=== PATIENT | male | born 1965 | race African-American/Black ===

== ENCOUNTER 2017-11-22 13:00 | Inpatient (IN) | payer OTHER ==
[2017-11-22] MEDS ORDERED: guaiFENesin/D-METHORPHAN HB 10 ML UNIT-DOSE CUPS PO PRN (19:05)
[2017-11-22] MEDS ORDERED: MAGNESIUM CITRATE 300 ML BOTTLE PO PRN (19:05)
[2017-11-22] MEDS ORDERED: LOPERAMIDE HCL 2 MG CAPSULE PO PRN (19:05)
[2017-11-22] MEDS ORDERED: P-EPHED 60MG/TRIPROLIDI 2.5MG TABLET PO PRN (19:05)
[2017-11-22] MEDS ORDERED: MENTHOL/PHENOL 1 EACH UD MM PRN (19:05)
[2017-11-22] MEDS ORDERED: ACETAMINOPHEN 325 MG TABLET (FP) PO PRN (19:05)
[2017-11-22] MEDS ORDERED: MAGNESIUM HYDROX 2400MG/30ML ORAL SUSPENSION 30 ML CUP PO PRN (19:05)
[2017-11-22] MEDS ORDERED: IBUPROFEN 400 MG TABLET (FP) PO PRN (19:05)
[2017-11-22] MEDS ORDERED: hydrOXYzine PAMOATE 50 MG CAPSULE (FP) PO PRN (19:05)
[2017-11-22] MEDS ORDERED: MAG HYDROX/AL HYDROX/SIMETH 30 ML UNIT-DOSE CUP PO PRN (19:05)
--- NOTE | 2017-11-22 19:05 | HP ---
[facility] Rehab Assess/Revision - Admission History Admitted to Rehab from: [facility] Date of Admission to Rehab: 11/22/17 - Findings Detox History & Physical reviewed: Yes Concur with findings: Yes Inpatient Rehab Admission - Initial Determination Are CD services needed?: Yes Free of communicable disease: Yes Not in need of hospitalization: Yes - Rehab Admission Criteria Previous failed treatment: Yes Poor recovery environment: Yes Comorbidities: Yes Lacks judgement: Yes Patient is meeting Inpatient Rehab admission criteria:: Yes
[2017-11-22] MEDS: THIAMINE HCL 100 MG TABLET (FP) PO SCH (21:34)
[2017-11-22] MEDS: MELATONIN 5 MG TABLETS PO PRN (21:34)
[2017-11-23] MEDS: PRENATAL VITAMINS W/ FOLIC ACID TABLET (FP) PO SCH (10:03)
--- NOTE | 2017-11-23 11:17 | HP ---
Psychiatrist Admission - Data Date of interview: 11/23/17 Admission source: [address] [place] [address] detox Identifying data: This is the third admission tot [address] [place] [address] rehabilitation for this 52 yo single AA father of ,domiciled,employed (seasonal job). Medical History: H/O PPD positive,H/O syncope. Psychiatric History: denies Physical/Sexual Abuse/Trauma History: denies Vital Signs: Vital Signs - 24 hr 11/23/17 11/23/17 11/23/17 01:04 03:30 06:48 Temperature 97.6 F Pulse Rate 54 L Respiratory 18 19 16 Rate Blood Pressure 113/87 Allergies/Adverse Reactions: Allergies Allergy/AdvReac Type Severity Reaction Status Date / Time No Known Drug Allergies Allergy Verified 11/18/17 21:26 Pork/Porcine Containing Allergy Verified 11/18/17 21:26 Products Date of last physical exam: 11/18/17 Concur with the findings of this exam: Yes - Substance Abuse/Tx History Hx Alcohol Use: Yes (drinkning since 5 yo,beer a few packs daily) Hx Substance Use: Yes (marijuana since 10 yo,cocaine/crack since 20 yo) Substance Use Type: Alcohol, Cocaine, Marijuana Hx Substance Use Treatment: Yes (completed this program in Mar 2012) Mental Status Exam - Mental Status Exam Alert and Oriented to: Time, Place, Person Cognitive Function: Grossly Intact Patient Appearance: Well Groomed Mood: Euthymic Affect: Mood Congruent Patient Behavior: Cooperative Speech Pattern: Clear Voice Loudness: Normal Thought Process: Goal Oriented Thought Disorder: Not Present Hallucinations: Denies Suicidal Ideation: Denies Homicidal Ideation: Denies Insight/Judgement: Fair Sleep: Fair Appetite: Good Muscle strength/Tone: Normal Gait/Station: Normal Psychiatric Findings - Problem List ([place] 1, 2,3) (1) Cannabis dependence Current Visit: Yes Status: Chronic (2) Cocaine dependence Current Visit: Yes Status: Chronic (3) History of positive PPD, treatment status unknown Current Visit: Yes Status: Chronic (4) Alcohol dependence Current Visit: Yes Status: Chronic - Initial Treatment Plan Initial Treatment Plan: wiil monitor program.
[2017-11-23] MEDS: THIAMINE HCL 100 MG TABLET (FP) PO SCH (21:21)
[2017-11-23] MEDS: MELATONIN 5 MG TABLETS PO PRN (21:22)
[2017-11-24] MEDS: PRENATAL VITAMINS W/ FOLIC ACID TABLET (FP) PO SCH (10:07)
[2017-11-24] MEDS: THIAMINE HCL 100 MG TABLET (FP) PO SCH (21:33)
[2017-11-24] MEDS: MELATONIN 5 MG TABLETS PO PRN (21:34)
[2017-11-25] MEDS: PRENATAL VITAMINS W/ FOLIC ACID TABLET (FP) PO SCH (09:59)
[2017-11-25] MEDS: THIAMINE HCL 100 MG TABLET (FP) PO SCH (21:35)
[2017-11-25] MEDS: MELATONIN 5 MG TABLETS PO PRN (21:35)
[2017-11-26] MEDS: PRENATAL VITAMINS W/ FOLIC ACID TABLET (FP) PO SCH (10:04)
[2017-11-26] MEDS: THIAMINE HCL 100 MG TABLET (FP) PO SCH (21:34)
[2017-11-26] MEDS: MELATONIN 5 MG TABLETS PO PRN (21:35)
[2017-11-27] MEDS: PRENATAL VITAMINS W/ FOLIC ACID TABLET (FP) PO SCH (10:32)
[2017-11-27] MEDS: MELATONIN 5 MG TABLETS PO PRN (21:32)
[2017-11-27] MEDS: THIAMINE HCL 100 MG TABLET (FP) PO SCH (21:32)
[2017-11-28] MEDS: PRENATAL VITAMINS W/ FOLIC ACID TABLET (FP) PO SCH (10:00)
[2017-11-28] MEDS: THIAMINE HCL 100 MG TABLET (FP) PO SCH (21:29)
[2017-11-28] MEDS: MELATONIN 5 MG TABLETS PO PRN (21:29)
[2017-11-29 06:42] VITALS: BP 117/62; PULSE 51; TEMP 97.3
[2017-11-29] MEDS: PRENATAL VITAMINS W/ FOLIC ACID TABLET (FP) PO SCH (09:56)
--- NOTE | 2017-11-29 10:40 | PN ---
[facility] Progress Note Note: Psychiatric nurse practitioner: Pt. leaving AMA. Pt. encouraged by staff to stay but continues to refuse. States he has to return to work.
--- NOTE | 2017-11-29 10:42 | PN ---
[facility] Progress Note Note: Patient signing out.
== END 2017-11-29 11:00 | disposition left against medical advice (07) | DRG 770 ==
LOC: YASAS 13:00 → Y5N 13:01
PROVIDERS: ADMIT Psychiatry & Neurology Psychiatry; ATTEND Psychiatry & Neurology Psychiatry
PROC: HZ42ZZZ Group Counseling for Substance Abuse Treatment, Cognitive-Behavioral (ICD-10-PCS; principal; 2017-11-22)
DX: F10.20 Alcohol dependence, uncomplicated (principal); F14.20 Cocaine dependence, uncomplicated; F12.20 Cannabis dependence, uncomplicated; R76.11 Nonspecific reaction to tuberculin skin test without active tuberculosis

== ENCOUNTER 2018-08-26 08:22 | Inpatient (IN) | payer SELFPAY ==
[2018-08-26 08:41] VITALS: BMI 24.2
--- NOTE | 2018-08-26 09:52 | HP ---
CIWA Score Nausea/Vomitin Muscle Tremors: 2 Anxiety: 2 Agitation: 2 Paroxysmal Sweats: 1-Minimal Palms Moist Orientation: 0-Oriented Tacttile Disturbances: 1-Very Mild Itch/Numbness Auditory Disturbances: 1-Very Mild Visual Disturbances: 0-None Headache: 2-Mild CIWA-Ar Total Score: 13 - Admission Criteria OASAS Guidelines: Admission for Medically Managed Detox: Requires at least one of the followin. CIWA greater than 12 2. Seizures within the past 24 hours 3. Delirium tremens within the past 24 hours 4. Hallucinations within the past 24 hours 5. Acute intervention needed for co occurring medical disorder 6. Acute intervention needed for co occurring psychiatric disorder 7. Severe withdrawal that cannot be handled at a lower level of care (continued vomiting, continued diarrhea, abnormal vital signs) requiring intravenous medication and/or fluids 8. Admission ROS S - HPI Chief Complaint: I need help to stop drinking alcohol,cocaine,marijuana Allergies/Adverse Reactions: Allergies Allergy/AdvReac Type Severity Reaction Status Date / Time No Known Drug Allergies Allergy Verified 08/26/18 08:54 Pork/Porcine Containing Allergy Verified 08/26/18 08:54 Products History of Present Illness: this 53 years old with alcohol,cocaine dependence seeking detox,withdrawal symptom, multiple admissions for detox,last detox [facility] 11/18/17 to 11/22/17 detox,to rehab 11/22/17 to 11/24/17 keep relapsing history of arthritis of right elbow,right hip,right knee,low back pain longest period of sobriety 2 years history of bradycardia,work out and exercise plan to go to rehab after detox - Ebola screening Have you traveled outside of the country in the last 21 days: No Have you had contact with anyone from an Ebola affected area: No - Review of Systems Constitutional: No Symptoms Reported, Unintentional Wgt. Loss, Unexplained wgt Loss EENT: reports: Nose Congestion Respiratory: reports: No Symptoms reported Cardiac: reports: Other (bradycardia) GI: reports: Nausea, Poor Appetite, Indigestion, Abdominal cramping : reports: No Symptoms Reported Musculoskeletal: reports: Back Pain, Joint Pain, Muscle Pain Integumentary: reports: Dryness Neuro: reports: Headache, Tremors Endocrine: reports: No Symptoms Reported Hematology: reports: No Symptoms Reported Psychiatric: reports: No Sypmtoms Reported, Judgement Intact, Mood/Affect Appropiate, Orientated x3 Other Systems: Reviewed and Negative Patient History - Patient Medical History Hx Anemia: Yes Hx Asthma: No Hx Chronic Obstructive Pulmonary Disease (COPD): No Hx Cancer: No Hx Cardiac Disorders: No Hx Congestive Heart Failure: No Hx Hypertension: No Hx Hypercholesterolemia: No Hx Pacemaker: No HX Cerebrovascular Accident: No Hx Seizures: No Hx Dementia: No Hx Diabetes: No Hx Gastrointestinal Disorders: No Hx Liver Disease: No Hx Genitourinary Disorders: No Hx Sexually Transmitted Disorders: No Hx Renal Disease (ESRD): No Hx Thyroid Disease: No Hx Human Immunodeficiency Virus (HIV): No (Negative. Last tested 2 yrs ago 2016) Hx Hepatitis C: No Hx Depression: Yes Hx Suicide Attempt: No Hx Bipolar Disorder: No Hx Schizophrenia: No Other Medical History: no suicidal,no homicidal,arthritis - Patient Surgical History Past Surgical History: Yes Hx Neurologic Surgery: No Hx Cataract Extraction: No Hx Cardiac Surgery: No Hx Lung Surgery: No Hx Breast Surgery: No Hx Breast Biopsy: No Hx Abdominal Surgery: No Hx Appendectomy: Yes (20 YEARS AGO) Hx Cholecystectomy: No Hx Genitourinary Surgery: No Hx Section: No Hx Orthopedic Surgery: No Anesthesia Reaction: No - PPD History Previous Implant?: Yes Documented Results: Positive w/proof Implanted On Prior R Admission?: No PPD to be Administered?: No - Smoking Cessation Smoking history: Former smoker Have you smoked in the past 12 months: No Hx Chewing Tobacco Use: No Initiated information on smoking cessation: Yes 'Breaking Loose' booklet given: 08/27/18 - Substance & Tx. History Hx Alcohol Use: Yes Hx Substance Use: Yes Substance Use Type: Alcohol, Cocaine Hx Substance Use Treatment: Yes ([facility] 11/18/17 to 11/22/17,rehab 11/22/17 to 04/12) - Substances abused Alcohol Substance route: Oral Frequency: Daily Amount used: fifth of wine; 6 cans of beers 0f 40 ozs Age of first use: 5 Date of last use: 08/25/18 Crack Substance route: Smoking Frequency: Daily Amount used: $50 Age of first use: 22 Date of last use: 08/25/18 Marijuana/Hashish Frequency: 3-6 times per week Amount used: 20$ Age of first use: 33 Date of last use: 08/24/18 Family Disease History - Family Disease History Family Disease History: Heart Disease: Father (. stroke, HTN.), Mother ( . HTN, Lung CA), CA: Mother, Other: Father Admission Physical Exam [facility] - Vital Signs Vital Signs: Vital Signs - 24 hr 08/26/18 08/26/18 08:38 08:55 Temperature 97.6 F 97.6 F Pulse Rate 44 L 44 L Respiratory 18 18 Rate Blood Pressure 135/72 135/72 - Physical General Appearance: Yes: Moderate Distress, Tremorous, Irritable, Sweating, Anxious HEENTM: Yes: Normal ENT Inspection, Pharynx Normal Respiratory: Yes: Lungs Clear, Normal Breath Sounds, No Respiratory Distress Neck: Yes: Within Normal Limits, Supple, Trachea in good position Breast: Yes: Within Normal Limits Cardiology: Yes: Bradycardia Abdominal: Yes: Within Normal Limits, Normal Bowel Sounds, Non Tender, Soft, Surgical Scar Genitourinary: Yes: Within Normal Limits Back: Yes: Muscle Spasm Musculoskeletal: Yes: full range of Motion, Back pain, Muscle Pain Extremities: Yes: Within Normal Limits, Normal Range of Motion, Tremors Neurological: Yes: electrical assembler II-XII NML intact, Fully Oriented, Alert, Motor Strength 5/5 Integumentary: Yes: Dry Lymphatic: Yes: Within Normal Limits - Diagnostic (1) syncope alcohol related Current Visit: No Status: Active (2) Alcohol dependence with uncomplicated withdrawal Current Visit: No Status: Acute (3) Cannabis dependence Current Visit: No Status: Chronic (4) Cocaine dependence Current Visit: No Status: Chronic (5) History of positive PPD, treatment status unknown Current Visit: No Status: Chronic (6) Bradycardia Current Visit: Yes Status: Acute (7) Arthritis Current Visit: Yes Status: Acute Cleared for Admission [facility] - Detox or Rehab [facility] Level of Care: Medically Managed Detox Regimen/Protocol: Librium Breathalyzer - Breathalyzer Breathalyzer: 0 Urine Drug Screen - Test Device Lot number: [id number] Expiration date: 05/23/20 - Control Is test valid?: Yes - Results Drug screen NEGATIVE: No Urine drug screen results: THC-Marijuana, MARLEE-Cocaine, MET-Methamphetamine Inpatient Rehab Admission - Rehab Decision to Admit Inpatient rehab admission?: No
[2018-08-26] MEDS ORDERED: MAGNESIUM CITRATE 300 ML BOTTLE PO PRN (10:01)
[2018-08-26] MEDS ORDERED: IBUPROFEN 400 MG TABLET (FP) PO PRN (10:01)
[2018-08-26] MEDS ORDERED: chlordiazePOXIDE HCL 25 MG CAPSULE PO PRN (10:01)
[2018-08-26] MEDS ORDERED: MAG HYDROX/AL HYDROX/SIMETH 30 ML UNIT-DOSE CUP PO PRN (10:01)
[2018-08-26] MEDS ORDERED: ACETAMINOPHEN 325 MG TABLET (FP) PO PRN ×2 (10:01)
[2018-08-26] MEDS ORDERED: hydrOXYzine PAMOATE 25 MG CAPSULE (FP) PO PRN (10:01)
[2018-08-26] MEDS ORDERED: BISMUTH SUBSALICYLATE 524 MG/30 ML UD PO PRN (10:01)
[2018-08-26] MEDS ORDERED: MENTHOL/PHENOL 1 EACH UD MM PRN (10:01)
[2018-08-26] MEDS ORDERED: METHOCARBAMOL 500 MG TABLET PO PRN (10:01)
[2018-08-26] MEDS ORDERED: MELATONIN 5 MG TABLETS PO PRN (10:01)
[2018-08-26] MEDS ORDERED: MAGNESIUM HYDROX 2400MG/30ML ORAL SUSPENSION 30 ML CUP PO PRN (10:01)
[2018-08-26] MEDS: chlordiazePOXIDE HCL 25 MG CAPSULE PO SCH ×3 (10:50→22:23)
[2018-08-26 12:13] LABS: ALBUMIN 3.6 g/dl (3.4-5.0); BILIRUBIN,TOTAL 0.4 mg/dL (0.2-1); CALCIUM 9.2 mg/dL (8.5-10.1); CREATININE 1.1 mg/dL (0.55-1.3); HEMATOCRIT 41.5 % (35.4-49); HEMOGLOBIN 13.5 GM/dL (11.7-16.9); MCH 32.8 pg (25.7-33.7); MCHC 32.7 g/dl (32.0-35.9); MEAN CELL VOLUME 100.5 fl (80-96); MEAN PLT VOLUME 11.1 fl (7.5-11.1); PLATELET COUNT 164 K/MM3 (134-434); POTASSIUM 4.1 mmol/L (3.5-5.1); RBC 4.13 M/mm3 (4.00-5.60); RDW 13.4 % (11.9-15.9); TOT PROT 7.3 g/dl (6.4-8.2); WHITE BLOOD COUNT 4.7 K/mm3 (4.0-10.0)
[2018-08-26] MEDS ORDERED: THIAMINE HCL 100 MG TABLET (FP) PO SCH (22:00)
[2018-08-27] MEDS: chlordiazePOXIDE HCL 25 MG CAPSULE PO SCH (06:50)
--- NOTE | 2018-08-27 09:16 | PN ---
[facility] CIWA - CIWA Score Nausea/Vomitin Muscle Tremors: 2 Anxiety: 2 Agitation: 3 Paroxysmal Sweats: 1-Minimal Palms Moist Orientation: 0-Oriented Tacttile Disturbances: 1-Very Mild Itch/Numbness Auditory Disturbances: 1-Very Mild Visual Disturbances: 0-None Headache: 2-Mild CIWA-Ar Total Score: 14 [facility] Progress Note (SOAP) Subjective: alert,irritable,anxious,interrupted sleep,pain in the body Objective: 08/27/18 09:15 Vital Signs Temperature 97.5 F L 08/27/18 07:07 Pulse Rate 46 L 08/27/18 07:07 Respiratory Rate 18 08/27/18 07:07 Blood Pressure 131/78 08/27/18 07:07 O2 Sat by Pulse Oximetry (%) Assessment: 08/27/18 09:16 withdrawal symptom Plan: continue detox
--- NOTE | 2018-08-27 09:21 | PN ---
[facility] Progress Note Note: patient did not want to complete treatment due to family emergency,signed release ama,high risk of relapsing explained, patient understood,left AMA.advise TO CALL 911 OR TO nearest emergency room if any problem
--- NOTE | 2018-08-27 09:25 | DS ---
[facility] Detox Discharge Summary Admission Date: 08/26/18 Discharge Date: 08/27/18 - History Present History: Alcohol Dependence, Cannabis Dependence, Cocaine Dependence Additional Comments: patient signed release AMA Pertinent Past History: bradycardia arthritis syncope - Physical Exam Results Vital Signs: Vital Signs Temperature 97.5 F L 08/27/18 07:07 Pulse Rate 46 L 08/27/18 07:07 Respiratory Rate 18 08/27/18 07:07 Blood Pressure 131/78 08/27/18 07:07 O2 Sat by Pulse Oximetry (%) Pertinent Admission Physical Exam Findings: withdrawal signs and symptom Vital Signs Temperature 97.5 F L 08/27/18 07:07 Pulse Rate 46 L 08/27/18 07:07 Respiratory Rate 18 08/27/18 07:07 Blood Pressure 131/78 08/27/18 07:07 O2 Sat by Pulse Oximetry (%) Laboratory Last Values WBC 4.7 K/mm3 (4.0-10.0) 08/26/18 09:50 RBC 4.13 M/mm3 (4.00-5.60) 08/26/18 09:50 Hgb 13.5 GM/dL (11.7-16.9) 08/26/18 09:50 Hct 41.5 % (35.4-49) 08/26/18 09:50 MCV 100.5 fl (80-96) H 08/26/18 09:50 MCH 32.8 pg (25.7-33.7) 08/26/18 09:50 MCHC 32.7 g/dl (32.0-35.9) 08/26/18 09:50 RDW 13.4 % (11.9-15.9) 08/26/18 09:50 Plt Count 164 K/MM3 (134-434) 08/26/18 09:50 MPV 11.1 fl (7.5-11.1) 08/26/18 09:50 Sodium 141 mmol/L (136-145) 08/26/18 09:50 Potassium 4.1 mmol/L (3.5-5.1) 08/26/18 09:50 Chloride 105 mmol/L (98-107) 08/26/18 09:50 Carbon Dioxide 30 mmol/L (21-32) 08/26/18 09:50 Anion Gap 6 MMOL/L (8-16) L 08/26/18 09:50 BUN 16 mg/dL (7-18) 08/26/18 09:50 Creatinine 1.1 mg/dL (0.55-1.3) 08/26/18 09:50 Est GFR (CKD-EPI)AfAm 87.13 08/26/18 09:50 Est GFR (CKD-EPI)NonAf 75.17 08/26/18 09:50 Random Glucose 95 mg/dL (74-106) 08/26/18 09:50 Calcium 9.2 mg/dL (8.5-10.1) 08/26/18 09:50 Total Bilirubin 0.4 mg/dL (0.2-1) 08/26/18 09:50 AST 37 U/L (15-37) 08/26/18 09:50 ALT 41 U/L (13-61) 08/26/18 09:50 Alkaline Phosphatase 77 U/L (45-117) 08/26/18 09:50 Total Protein 7.3 g/dl (6.4-8.2) 08/26/18 09:50 Albumin 3.6 g/dl (3.4-5.0) 08/26/18 09:50 RPR Titer Nonreactive (NONREACTIVE) 08/26/18 09:50 - Medication Discharge Medications: Ambulatory Orders NK [No Known Home Medication] 11/18/17 - Diagnosis (1) syncope alcohol related Current Visit: No Status: Active (2) Alcohol dependence with uncomplicated withdrawal Current Visit: No Status: Acute (3) Cannabis dependence Current Visit: No Status: Chronic (4) Cocaine dependence Current Visit: No Status: Chronic (5) History of positive PPD, treatment status unknown Current Visit: No Status: Chronic (6) Bradycardia Current Visit: Yes Status: Acute (7) Arthritis Current Visit: Yes Status: Acute - AMA Did Patient Leave Against Medical Advice: Yes
[2018-08-27 09:26] VITALS: BP 120/67; PULSE 63; TEMP 97.2
[2018-08-27] MEDS ORDERED: PRENATAL VITAMINS W/ FOLIC ACID TABLET (FP) PO SCH (10:00)
[2018-08-27] MEDS ORDERED: chlordiazePOXIDE HCL 25 MG CAPSULE PO SCH (11:00)
--- NOTE | 2018-08-27 12:05 | EKG ---
Test Reason : Blood Pressure : / mmHG Vent. Rate : 048 BPM Atrial Rate : 048 BPM P-R Int : 132 ms QRS Dur : 094 ms QT Int : 464 ms P-R-T Axes : 069 055 063 degrees QTc Int : 414 ms SINUS BRADYCARDIA T WAVE ABNORMALITY, CONSIDER ANTERIOR ISCHEMIA ABNORMAL ECG WHEN COMPARED WITH ECG OF 18-NOV-2017 20:05, NO SIGNIFICANT CHANGE WAS FOUND Confirmed by Gio Sharp MD ([id number]) on 08/27/2018 12:04:33 PM Referred By: Confirmed By:Gio Sharp MD
[2018-08-28] MEDS ORDERED: chlordiazePOXIDE HCL 10 MG CAPSULE PO SCH (11:00)
[2018-08-28] MEDS ORDERED: chlordiazePOXIDE HCL 10 MG CAPSULE PO PRN (11:00)
[2018-08-29] MEDS ORDERED: chlordiazePOXIDE HCL 10 MG CAPSULE PO SCH (11:00)
== END 2018-08-27 10:09 | disposition left against medical advice (07) | DRG 770 ==
LOC: YASAS 08:22 → Y6N 10:13
PROVIDERS: ADMIT Surgery; ATTEND Surgery
PROC: HZ2ZZZZ Detoxification Services for Substance Abuse Treatment (ICD-10-PCS; principal; 2018-08-26)
DX: F10.230 Alcohol dependence with withdrawal, uncomplicated (principal); F14.20 Cocaine dependence, uncomplicated; F12.20 Cannabis dependence, uncomplicated; R00.1 Bradycardia, unspecified; R55 Syncope and collapse; R76.11 Nonspecific reaction to tuberculin skin test without active tuberculosis; M13.89 Other specified arthritis, multiple sites
CPT/HCPCS: 36415; 80053; 85027; 86593; 93005; 93010

== ENCOUNTER 2020-05-07 10:45 | Inpatient (IN) | payer OTHER ==
[2020-05-07 11:48] VITALS: BMI 24.2
[2020-05-07] MEDS ORDERED: MAG HYDROX/AL HYDROX/SIMETH 30 ML UNIT-DOSE CUP PO PRN (13:43)
[2020-05-07] MEDS ORDERED: MAGNESIUM CITRATE 300 ML BOTTLE PO PRN (13:43)
[2020-05-07] MEDS ORDERED: ONDANSETRON *ODT* 4 MG TABLET SL PRN (13:43)
[2020-05-07] MEDS ORDERED: MENTHOL/PHENOL 1 EACH UD MM PRN (13:43)
[2020-05-07] MEDS ORDERED: MAGNESIUM HYDROX 2400MG/30ML ORAL SUSPENSION 30 ML CUP PO PRN (13:43)
[2020-05-07] MEDS ORDERED: METHOCARBAMOL 500 MG TABLET PO PRN (13:43)
[2020-05-07] MEDS ORDERED: BISMUTH SUBSALICYLATE 524 MG/30 ML UD PO PRN (13:43)
[2020-05-07] MEDS ORDERED: chlordiazePOXIDE HCL 25 MG CAPSULE PO PRN (13:43)
[2020-05-07] MEDS ORDERED: ACETAMINOPHEN 325 MG TABLET (FP) PO PRN ×2 (13:43)
[2020-05-07] MEDS: PRENATAL VITAMINS W/ FOLIC ACID TABLET (FP) PO SCH (14:31)
[2020-05-07] MEDS: hydrOXYzine PAMOATE 25 MG CAPSULE (FP) PO SCH ×3 (14:32→22:31)
[2020-05-07] MEDS: chlordiazePOXIDE HCL 25 MG CAPSULE PO SCH ×2 (17:37→22:31)
[2020-05-07 18:01] LABS: POTASSIUM 3.8 mmol/L (3.5-5.1)
[2020-05-07 18:04] LABS: HEMATOCRIT 36.4 % (35.4-49); HEMOGLOBIN 12.5 GM/dL (11.7-16.9); MCH 33.2 pg (25.7-33.7); MCHC 34.3 g/dl (32.0-35.9); MEAN CELL VOLUME 96.9 fl (80-96); PLATELET COUNT 169 K/MM3 (134-434); RBC 3.76 M/mm3 (4.00-5.60); RDW 13.2 % (11.9-15.9); WHITE BLOOD COUNT 6.5 K/mm3 (4.0-10.0)
[2020-05-07 18:20] LABS: BLOOD UREA NITROGEN 11.5 mg/dL (7-18)
[2020-05-07 18:21] LABS: ALBUMIN 3.6 g/dl (3.4-5.0)
[2020-05-07 18:24] LABS: CREATININE 1.1 mg/dL (0.55-1.3)
[2020-05-07 18:26] LABS: TOT PROT 7.4 g/dl (6.4-8.2)
[2020-05-07] MEDS: THIAMINE HCL 100 MG TABLET (FP) PO SCH (22:31)
[2020-05-07] MEDS: MELATONIN 5 MG TABLETS PO SCH (22:31)
[2020-05-08] MEDS: chlordiazePOXIDE HCL 25 MG CAPSULE PO SCH ×4 (07:25→22:15)
[2020-05-08] MEDS: hydrOXYzine PAMOATE 25 MG CAPSULE (FP) PO SCH ×5 (07:26→22:17)
[2020-05-08] MEDS: PRENATAL VITAMINS W/ FOLIC ACID TABLET (FP) PO SCH (10:37)
[2020-05-08] MEDS: MELATONIN 5 MG TABLETS PO SCH (22:14)
[2020-05-08] MEDS: THIAMINE HCL 100 MG TABLET (FP) PO SCH (22:14)
[2020-05-09] MEDS: hydrOXYzine PAMOATE 25 MG CAPSULE (FP) PO SCH ×5 (05:58→22:46)
[2020-05-09] MEDS: chlordiazePOXIDE HCL 25 MG CAPSULE PO SCH ×4 (05:59→22:46)
[2020-05-09] MEDS: PRENATAL VITAMINS W/ FOLIC ACID TABLET (FP) PO SCH (10:09)
[2020-05-09] MEDS: MELATONIN 5 MG TABLETS PO SCH (22:46)
[2020-05-09] MEDS: THIAMINE HCL 100 MG TABLET (FP) PO SCH (22:46)
[2020-05-10] MEDS ORDERED: chlordiazePOXIDE HCL 10 MG CAPSULE PO PRN
[2020-05-10] MEDS: chlordiazePOXIDE HCL 10 MG CAPSULE PO SCH ×4 (05:39→22:27)
[2020-05-10] MEDS: hydrOXYzine PAMOATE 25 MG CAPSULE (FP) PO SCH ×2 (05:40→10:33)
[2020-05-10] MEDS: IBUPROFEN 400 MG TABLET (FP) PO PRN (05:40)
[2020-05-10] MEDS: PRENATAL VITAMINS W/ FOLIC ACID TABLET (FP) PO SCH (10:32)
[2020-05-10] MEDS ORDERED: hydrOXYzine PAMOATE 25 MG CAPSULE (FP) PO PRN (11:57)
[2020-05-10 18:26] VITALS: TEMP 97.5
[2020-05-10] MEDS: THIAMINE HCL 100 MG TABLET (FP) PO SCH (22:27)
[2020-05-10] MEDS: MELATONIN 5 MG TABLETS PO SCH (22:27)
[2020-05-11] MEDS ORDERED: chlordiazePOXIDE HCL 10 MG CAPSULE PO SCH (05:00)
[2020-05-11 06:12] VITALS: BP 125/81; PULSE 78
[2020-05-11] MEDS: IBUPROFEN 400 MG TABLET (FP) PO PRN (06:32)
[2020-05-12] MEDS ORDERED: chlordiazePOXIDE HCL 10 MG CAPSULE PO ONE (05:00)
== END 2020-05-11 09:33 | disposition home or self-care (01) | DRG 774 ==
LOC: YASAS 10:45 → Y3N 12:04
PROVIDERS: ADMIT Allergy & Immunology; ATTEND Allergy & Immunology
PROC: HZ2ZZZZ Detoxification Services for Substance Abuse Treatment (ICD-10-PCS; principal; 2020-05-07)
DX: F10.230 Alcohol dependence with withdrawal, uncomplicated (principal); F14.20 Cocaine dependence, uncomplicated; F12.20 Cannabis dependence, uncomplicated; M12.9 Arthropathy, unspecified; R00.1 Bradycardia, unspecified; R76.11 Nonspecific reaction to tuberculin skin test without active tuberculosis; Z90.49 Acquired absence of other specified parts of digestive tract; Z91.018 Allergy to other foods
CPT/HCPCS: 36415; 71045-TC-FY; 80053; 85027; 86780; 93005; 93010; C9803; U0003